=== PATIENT | male | born 1980 | race African-American/Black ===

== ENCOUNTER 2017-01-18 20:47 | Emergency (ER) | payer SELFPAY ==
[~2017-01-18] VITALS: Ht 188 cm; Wt 160.5 kg
[2017-01-18 21:37] LABS: MCHC 33.6 G/DL (30.0-36.0); MCV 86.2 FL (86-99); MEAN PLAT.VOLUME 9.3 uM^3 (9.0-12.4); PLATELET COUNT 338 K/uL (156-360); RBC DIS.WIDTH-CV 12.5 % (11.8-14.6); RBC DIS.WIDTH-SD 39.7 % (39-53); RED BLOOD COUNT 4.87 M/uL (4.00-5.50); WHITE BLOOD COUNT 8.8 K/uL (4.1-10.2)
[2017-01-18 21:51] LABS: CHLORIDE 106 mEq/L (99-109); POTASSIUM 4.2 mEq/L (3.7-5.4); SODIUM 140 mEq/L (136-147)
[2017-01-18 21:52] LABS: GLUCOSE 112 mg/dL (70-99)
[2017-01-18 21:54] LABS: ANION GAP 9 MEQ/L (2-14)
[2017-01-18 21:56] LABS: GFR ESTIMATE (CALCULATED) > 59 mL/min/
[2017-01-18 21:57] LABS: UREA NITROGEN (BUN) 11 mg/dL (9-23)
[2017-01-18 21:58] LABS: TROP-I INTERPRETATION NEGATIVE; TROPONIN-I < 0.01 ng/mL (0.0-0.30)
[2017-01-18] MEDS ORDERED: LOPRESSOR50 MG PO (23:53)
[2017-01-19 00:49] LABS: TROP-I INTERPRETATION NEGATIVE; TROPONIN-I 0.01 ng/mL (0.0-0.30)
[2017-01-19 01:31] VITALS: BP 142/94
== END 2017-01-19 01:32 | disposition home or self-care (01) ==
LOC: EME 20:47
PROVIDERS: Emergency Medicine
DX: R07.9 Chest pain, unspecified (principal); I10 Essential (primary) hypertension
CPT/HCPCS: 71020; 80048; 84484; 85027; 93005; 99281; 99285

== ENCOUNTER 2017-04-10 06:54 | Emergency (ER) | payer OTHER ==
[~2017-04-10] VITALS: Ht 188 cm; Wt 171.7 kg
[~2017-04-10 06:54] MED LIST: LOPRESSOR50 MG PO
[2017-04-10] MEDS ORDERED: METOPROLOL TART50 MG PO (08:44)
[2017-04-10 08:57] VITALS: BP 154/92
== END 2017-04-10 08:58 | disposition home or self-care (01) ==
LOC: EME 06:54
DX: I10 Essential (primary) hypertension (principal); R42 Dizziness and giddiness; E66.9 Obesity, unspecified; Z87.891 Personal history of nicotine dependence
CPT/HCPCS: 99281; 99283